=== PATIENT | male | born 1995 | race Caucasian/White ===

== ENCOUNTER 2016-12-30 06:27 | Emergency (ER) | payer BC ==
[~2016-12-30] VITALS: Ht 182.9 cm; Wt 67.2 kg
[2016-12-30 06:33] VITALS: BP 114/79; PULSE 86; RESP 18; TEMP 97.6; O2SAT 99
[2016-12-30] MEDS ORDERED: LIDOCAINE 1%/EPINEPHrine 1:100,000 SOLN 20 ML VIAL INFIL ONE (07:00)
--- NOTE | 2016-12-30 07:14 | PD ---
HPI Chief Complaint: Laceration/Skin Injury Time Seen by Provider: 06:55 Travel History International Travel<30 days: No Contact w/Intl Traveler<30days: No Traveled to known affect area: No History of Present Illness HPI The patient is a 21-year-old male who presents emergency department for laceration to left hand. The patient accidentally cut the extensor surface of left hand at the base of the fifth digit, left hand, earlier today on glass. The laceration bled initially but is currently stopped. He denies any numbness, tingling, or weakness of the fifth digit of the left hand. Patient's last tetanus shot was within the last 5 years. The patient is right-hand dominant. Symptoms are mild, exacerbated after cutting himself accidentally on glass, and alleviated slightly with holding pressure over the affected area. PFSH Past Medical History ADHD: Yes Cardiovascular Problems: No Diminished Hearing: No Genitourinary: No Neurologic: No Respiratory: No Tetanus Vaccination: < 5 Years Influenza Vaccination: No Past Surgical History Abdominal Surgery: No Appendectomy: Yes Cardiac Surgery: No Ear Surgery: No Endocrine Surgery: No Eye Surgery: No Genitourinary Surgery: No Gynecologic Surgery: No Neurologic Surgery: No Oral Surgery: No Thoracic Surgery: No Other Surgery: Yes (PE TUBES) Social History Alcohol Use: Yes (Socially ) Tobacco Use: Yes (1 ppd) Substance Use: No Allergies-Medications (Allergen,Severity, Reaction): Coded Allergies: Ceclor (Verified Allergy, Severe, 12/30/16) Codeine (Verified Allergy, Severe, Vomiting, 12/30/16) Lortab (Verified Allergy, Mild, 12/30/16) Tylenol #3 (Verified Adverse Reaction, Mild, pt vomits, 12/30/16) Reported Meds & Prescriptions Reported Meds & Active Scripts Active Review of Systems Except as stated in HPI: all other systems reviewed are Neg Musculoskeletal: Positive: Pain, No: Limited ROM Skin: Positive Other (as noted in history present illness) Neurologic: No: Paresthesia, Sensory Disturbance Physical Exam Narrative GENERAL: Awake, alert, pleasant 21-year-old male who appears his stated age and is in no acute respiratory distress. SKIN: Focused skin assessment warm/dry. HEAD: Atraumatic. Normocephalic. EYES: No injection or drainage. MUSCULOSKELETAL: Patient has a 1 cm laceration of extensor surface of the fifth digit just lateral distal to the MCP as well as 1.5 cm diagonal laceration of the extensor surface of the fifth digit, proximal phalanx. He is able fully flex at the MCP, PIP, DIP. Capillary refills less than 2 seconds. NEUROLOGICAL: Awake and alert. No obvious cranial nerve deficits. Motor grossly within normal limits. Normal speech. Sensation is intact over the radial and ulnar aspect of the fifth digit left hand. PSYCHIATRIC: Appropriate mood and affect; insight and judgment normal. Data Data Last Documented VS Vital Signs Date Time Temp Pulse Resp B/P Pulse Ox O2 Delivery O2 Flow Rate FiO2 12/30/16 06:33 97.6 86 18 114/79 99 Orders Lidocai-Epi 1%-1:100,000 Inj (Xylocaine- (12/30/16 07:00) MDM Medical Decision Making Medical Screen Exam Complete: Yes Emergency Medical Condition: Yes Medical Record Reviewed: Yes Differential Diagnosis Differential diagnoses includes laceration, tendon laceration, nerve injury, venous injury, arterial injury, open fracture, retained foreign body. Narrative Course The laceration was draped and prepped in normal sterile fashion and anesthetized 1% lidocaine over the extensor surface the left hand, digital block was not needed as laceration was proximal. There was cleaned with sterile saline and Betadine, irrigated with sterile saline and inspected. There is no visible foreign bodies. No visible tendon laceration. The laceration was sutured in a superficial layer. The tetanus shot is up-to-date. The patient is advised to keep the area clean and dry, Polysporin twice a day , and at the sutures removed in 7-10 days. Monitor for signs of infection. Procedures Procedure Narrative LACERATION LOCATION: Fifth digit left hand LENGTH: 170 NUMBER OF STITCHES/JOSE: 1 REPAIR: The area of the laceration was prepped with Betadine and sterilely draped. The laceration was infiltrated with 1% lidocaine with epinephrine. The wound was copiously irrigated and explored without evidence of foreign body , tendon injury or neurovascular injury. The wound was closed using 4.0 nylon this was a single layer repair. A sterile dressing was applied. The patient was advised to keep the dressing clean and dry. Patient tolerated the procedure well. LACERATION LOCATION: Fifth digit left hand LENGTH: 1.5 cm NUMBER OF STITCHES/OJSE: 2 REPAIR: The area of the laceration was prepped with Betadine and sterilely draped. The laceration was infiltrated with 1% lidocaine with epinephrine. The wound was copiously irrigated and explored without evidence of foreign body , tendon injury or neurovascular injury. The wound was closed using 4.0 nylon. This was a single layer repair. A sterile dressing was applied. The patient was advised to keep the dressing clean and dry. Patient tolerated the procedure well. Diagnosis Primary Impression: Laceration of left hand Qualified Code: S61.412A - Laceration of left hand without foreign body, initial encounter Patient Instructions: General Instructions Additional Instructions: Suture removal in 7-10 days. Wound care instructions. Monitor for signs of infection. Clean daily with soap and water, apply Polysporin twice a day, keep clean and dry. Med/Other Pt SpecificInfo: No Change to Meds Disposition: 01 DISCHARGE HOME Condition: Stable Dawit Velasquez MD December 30, 2016 07:14
== END 2016-12-30 07:30 | disposition home or self-care (01) ==
LOC: PHED 06:27
DX: S61.412A Laceration without foreign body of left hand, initial encounter (principal); F90.9 Attention-deficit hyperactivity disorder, unspecified type; F17.200 Nicotine dependence, unspecified, uncomplicated
CPT/HCPCS: 12001